=== PATIENT | female | born 1945 | race Caucasian/White ===

== ENCOUNTER 2020-03-31 18:21 | Emergency (ER) | payer MEDICARE, BC ==
[~2020-03-31] VITALS: Ht 165.1 cm; Wt 85.3 kg
--- NOTE | 2020-03-31 18:50 | NUR ---
Dr. Miller at bedside for MSE
[2020-03-31 19:01] LABS: BASOPHILS # (AUTO) 0.1 K/uL (0.0-8.0); BASOPHILS % (AUTO) 0.7 % (0.0-2.0); EOSINOPHILS # (AUTO) 0.1 K/uL (0.0-0.7); EOSINOPHILS % (AUTO) 0.9 % (0.0-7.0); HEMATOCRIT 35.7 % (31.2-41.9); HEMOGLOBIN 11.9 g/dL (10.9-14.3); LYMPHOCYTES # (AUTO) 3.5 K/uL (20.0-40.0); MEAN CORPUSCULAR HEMOGLOBIN 29.3 uug (24.7-32.8); MEAN CORPUSCULAR HGB CONC 33 g/dL (32.3-35.6); MEAN CORPUSCULAR VOLUME 88.3 fL (75.5-95.3); MONOCYTES # (AUTO) 0.7 K/uL (2.0-10.0); MONOCYTES % (AUTO) 6.4 % (0.0-11.0); NEUTROPHILS # (AUTO) 6.6 K/uL (1.8-8.9); PLATELET COUNT (AUTO) 314 K/uL (179-408); RED BLOOD CELL COUNT(AUTO) 4.05 MIL/uL (3.63-4.92); WHITE BLOOD COUNT (AUTO) 11.1 K/uL (3.8-11.8)
--- NOTE | 2020-03-31 19:01 | NUR ---
Report given to zac MANCILLA
[2020-03-31] MEDS ORDERED: OMEP20TA5 PO (19:02)
[2020-03-31] MEDS ORDERED: VALS1TAB8 PO (19:02)
[2020-03-31] MEDS ORDERED: MONT10TA22 PO (19:02)
[2020-03-31] MEDS ORDERED: DOCU100C36 PO (19:02)
[2020-03-31] MEDS ORDERED: METH454P4 PO (19:02)
[2020-03-31] MEDS ORDERED: GUAI600T31 PO (19:02)
[2020-03-31] MEDS ORDERED: CHOL200026 PO (19:02)
[2020-03-31] MEDS ORDERED: METF-441 PO (19:02)
[2020-03-31] MEDS ORDERED: ASCO500P18 PO (19:02)
[2020-03-31] MEDS ORDERED: FERR325T28 PO (19:02)
[2020-03-31] MEDS ORDERED: VARI50KI IM (19:02)
[2020-03-31] MEDS ORDERED: POLY17PO4 GT (19:02)
[2020-03-31] MEDS ORDERED: UBID100C45 PO (19:02)
[2020-03-31] MEDS ORDERED: ROSU40TA PO (19:02)
[2020-03-31] MEDS ORDERED: ASPI81TA31 PO (19:02)
[2020-03-31] MEDS ORDERED: BUPR200T PO (19:02)
--- NOTE | 2020-03-31 19:10 | NUR ---
Pt out of ER for CT.
[2020-03-31 19:13] LABS: CARBON DIOXIDE 25 mmol/L (21-32); CHLORIDE 95 mmol/L (98-107); CREATININE 1.6 mg/dL (0.6-1.3); GLUCOSE 98 mg/dL (74-106); POTASSIUM 3.2 mmol/L (3.5-5.1); UREA NITROGEN, BLOOD 21 mg/dL (7-18)
[2020-03-31 19:23] LABS: ALANINE AMINOTRANSFERASE 25 U/L (14-59); ALKALINE PHOSPHATASE 43 U/L (50-136); ASPARTATE AMINOTRANSFERASE 20 U/L (15-37); BILIRUBIN,DIRECT 0.2 mg/dL (0.0-0.2); BILIRUBIN,TOTAL 0.4 mg/dL (0.2-1.0); TOTAL PROTEIN, SERUM 7.2 g/dL (6.4-8.2)
--- NOTE | 2020-03-31 19:25 | NUR ---
patient came back from cat scan , dr anderson is currently talking to dr schwartz from [facility] , patient unable to provide urine at this time
[2020-03-31 19:45] LABS: THYROID STIMULATING HORMONE 1.553 mIU/mL (0.358-3.740)
--- NOTE | 2020-03-31 19:50 | NUR ---
spoke to rogelio from [facility] transport center , , regarding request of transfer by dr anderson from dr schwartz of [facility] for cervical cord compression . waiting for call back for eta fax no [phone]
--- NOTE | 2020-03-31 20:54 | NUR ---
dr anderson just spoke to dr montano from [facility] , they need to speak to one of the [facility] surgeon first , before transfer of the patient
--- NOTE | 2020-03-31 21:04 | NUR ---
dr anderson spoke to patient to inform about plans from [facility] , will give more updates once [facility] gives more info
--- NOTE | 2020-03-31 22:16 | NUR ---
Received call back from ROMELIA Vallejo outsole caser, gave clinical info, will call back for report and room#
--- NOTE | 2020-03-31 22:20 | NUR ---
Received call back from [facility] [employer], Angelica, with transfer information: Patient going to [facility], [facility] Room#3216, number to report to , Accepting MD is Dr. Rico.
--- NOTE | 2020-03-31 22:32 | NUR ---
Called [facility] for transport of patient to [facility], spoke with nena, ETA [phone].
--- NOTE | 2020-03-31 22:53 | NUR ---
Received call back from [facility] is 30 min.
--- NOTE | 2020-03-31 23:23 | NUR ---
[facility] arrive to ER to transport patient to [facility]. Report and documenation given to EMT.
--- NOTE | 2020-03-31 23:30 | NUR ---
Report given to Marcelle MANCILLA [facility].
== END 2020-03-31 23:33 | disposition short-term general hospital (02) ==
LOC: ER 18:24
DX: G95.20 Unspecified cord compression (principal); R53.1 Weakness; J45.909 Unspecified asthma, uncomplicated; E78.00 Pure hypercholesterolemia, unspecified; Z79.899 Other long term (current) drug therapy; E87.1 Hypo-osmolality and hyponatremia; I44.0 Atrioventricular block, first degree; E87.2 Acidosis; Z79.84 Long term (current) use of oral hypoglycemic drugs; E11.22 Type 2 diabetes mellitus with diabetic chronic kidney disease; N18.9 Chronic kidney disease, unspecified
CPT/HCPCS: 36415; 70030-TC; 70450; 83605; 84443; 85025; 85730; 87040; 87077; 87086; 93005; A4663